=== PATIENT | male | born 1965 ===

== ENCOUNTER 2018-05-04 06:09 | Emergency (ER) | payer MEDICAID ==
[~2018-05-04] VITALS: Ht 177.8 cm; Wt 67.4 kg
[2018-05-04 06:20] VITALS: BP 117/77
--- NOTE | 2018-05-04 06:40 | NUR ---
PT PRESENTED WITH C/O B/L HANDS, ARMS, AND KNEE PAIN X 4 DAYS. PT HAS HX OF SAME. PROVIDED PT WITH GOWN. AWAITING ERP FOR EVAL AND ORDERS
--- NOTE | 2018-05-04 06:52 | NUR ---
Jonathan velasquez in [facility] - 05/04/18 at 0656 by MISHA REPORT GIVEN TO ESTEFANY SÁNCHEZ
--- NOTE | 2018-05-04 06:56 | NUR ---
REPORT GIVEN TO PENNY/PRICNESS RN
--- NOTE | 2018-05-04 06:57 | NUR ---
BEDSIDE REPORT FROM ROLAND RN, PT C/O BILAT UE & LE PAIN. GIVEN BLANKETS. CECI. SERENA.
== END 2018-05-04 08:02 | disposition home or self-care (01) ==
LOC: ED 07:12
DX: M25.562 Pain in left knee (principal); M25.561 Pain in right knee; M25.522 Pain in left elbow; M25.521 Pain in right elbow; Z59.0 Homelessness; Z86.14 Personal history of Methicillin resistant Staphylococcus aureus infection; F17.210 Nicotine dependence, cigarettes, uncomplicated
CPT/HCPCS: 99283

== ENCOUNTER 2018-06-05 14:02 | Emergency (ER) | payer MEDICAID ==
[~2018-06-05] VITALS: Ht 177.8 cm; Wt 67.9 kg
[2018-06-05 14:10] VITALS: BP 125/75
--- NOTE | 2018-06-05 15:44 | NUR ---
Patient/Caregiver given discharge instructions and they have confirmed that they understand the instructions. Patient ambulatory with steady gait.
== END 2018-06-05 15:45 | disposition home or self-care (01) ==
LOC: ED 15:41
DX: J18.9 Pneumonia, unspecified organism (principal); M51.34 Other intervertebral disc degeneration, thoracic region
CPT/HCPCS: 71046; 72072; 99283